=== PATIENT | female | born 1980 | race Caucasian/White ===

== ENCOUNTER 2022-03-04 10:54 | Emergency (ER) | payer BC ==
--- OUTSIDE RECORDS SUMMARY | 2022-03-04 10:58 | XMS REPORT | Continuity of Care Document ---
:1980 Author Organization [facility] t Address [address] [place] [address] Care Team Providers Name Role Phone Prezas DO Primary Care Physician PREZAS Attending Clinician Unavailable AMBREEN_FARHANA Attending Clinician Unavailable [facility] Attending Clinician Unavailable Prekyra DO Attending Clinician G_Pappas Attending Clinician Unavailable AMBREEN_FARHANA Admitting Clinician Unavailable G_Pappas Admitting Clinician Unavailable Payers Payer Name Policy Type Policy Number Effective Date Expiration Date S tracy BCBS 2 [id number] 2021 00:00:00 [place] [id number] 2017 2021 00:00:00 [place] 00:00:00 Problems Condition Condition Condition Status Onset Resolution Last Treating Co mments Source Name Details Category Date Date Treatment Clinician Date Obesity Obesity Disease Active Antoinette (BMI (BMI 3-02 Seybold 35.0-39.9 35.0-39.9 00:00: without without 00 comorbidit comorbidit y) y) Fibroid Fibroid Disease Active Antoinette 3-02 Seybold 00:00: 00 Sprain of Sprain of Disease Active Kavon peoplesy calcaneofi calcaneofi 3-02 Se ybold bular bular 00:00: ligament ligament 00 of left of left ankle ankle Allergies, Adverse Reactions, Alerts This patient has no known allergies or adverse reactions. Social History Social Habit Start Date Stop Date Quantity Comments Source Tobacco use and 2021-10-10 2021-10-10 Smokeless tobacco Ke scott King exposure 00:00:00 00:00:00 non-user Alcohol intake 2021-10-10 2021-10-10 Ex-drinker Antoinette Montes bold 00:00:00 00:00:00 (finding) Education 2021-10-10 2021-10-10 12 Antoinettetram Ayalaold 00:00:00 00:00:00 Sex [birth year] At [birth year] Antoinette reid 00:00:00 00:00:00 Smoking Status Start Date Stop Date Source Never smoked tobacco Antoinette gabriel Medications Ordered Filled Start Stop Current Ordering Indication Dosage Frequency Signature Comments Components Source Medication Medication Date Date Medication? Clinician (SIG) Name Name busPIRone 15mg Take 15 mg K elsey HCl 15 MG 08-22 by mouth 2 Sey bold oral Tablet 00:00: 00:00 times 00 :00 daily Atomoxetine 2020-08 No 1{capsu Take 1 Antoinette HCl 40 MG 09-27 le} capsule by Sey bold oral 00:00: 00:00 mouth Capsule 00 :00 daily Escitalopra Yes Antoinette mccormack Oxalate 10-10 Seybold (Lexapro) 00:00: 20 MG oral 00 Tablet Immunizations Ordered Immunization Filled Immunization Date Status Commen ts Source Name Name Covid-19 Vaccine 2021-07-22 Completed Antoinette cardenas (Allegory Law), Mrna-lnp, 00:00:00 Sony Protein, Pf, 30mcg/0.3ml,IM Covid-19 Vaccine 2020-11-29 Completed Antoinette cardenas (Allegory Law), Mrna-lnp, 00:00:00 Sony Protein, Pf, 30mcg/0.3ml,IM Covid-19 Vaccine 2020-11-09 Completed Antoinette cardenas (Allegory Law), Mrna-lnp, 00:00:00 Sony Protein, Pf, 30mcg/0.3ml,IM Vital Signs Vital Name Observation Time Observation Value Comments Source Systolic blood pressure 2021-10-10 19:10:00 143 mm[Hg] Antoinette King Diastolic blood 2021-10-10 19:10:00 87 mm[Hg] Nacho y Fernando pressure Heart rate 2021-10-10 19:10:00 86 /min Antoinette cardenas Body temperature 2021-10-10 19:10:00 36.61 Davina Carrie King Respiratory rate 2021-10-10 19:10:00 14 /min Carrie King Body height 2021-10-10 19:10:00 165.1 cm Antoinette cardenas Body weight 2021-10-10 19:10:00 97.07 kg Antoinette cardenas BMI 2021-10-10 19:10:00 35.61 kg/m2 Antoinette cardenas Procedures This patient has no known procedures. Encounters Start End Encounter Admission Attending Care Care Encounter Source Date/Time Date/Time Type Type Clinicians Facility Department ID 2022-03-04 2022-03-04 Outpatient ANTOINETTE CHAPA [id number] Antoinette 00:00:00 00:00:00 ABRAHAM Seybol d 2022-03-01 2022-03-01 Outpatient ANTOINETTE CHAPA [id number] Antoinette 00:00:00 00:00:00 ABRAHAM Seybol d 2022-02-19 2022-02-19 Outpatient [facility] [address] [facility] 02:30:00 02:30:00 COROLLA [facility] 2021-12-31 2021-12-31 Outpatient ANTOINETTE CHAPA [id number] Antoinette 08:45:00 08:45:00 ABRAHAM Seybol d 2021-12-31 2021-12-31 Outpatient ANTOINETTE CHAPA [id number] Antoinette 08:15:00 08:15:00 ABRAHAM Seybol d 2021-12-26 2021-12-26 Outpatient ANTOINETTE CHAPA [id number] Antoinette 00:00:00 00:00:00 ABRAHAM Seybol d 2021-11-14 2021-11-14 Outpatient ANTOINETTE CHAPA [id number] Antoinette 13:30:00 13:30:00 ABRAHAM Seybol d 2021-10-15 2021-10-15 Outpatient ANTOINETTE CHAPA [id number] Antoinette 00:00:00 00:00:00 ABRAHAM kelly 2021-10-11 2021-10-11 Outpatient RAJALEXFreya CLULEN [id number] Antoinette 00:00:00 00:00:00 MD Bryce CASTELLANOS 2021-10-10 2021-10-10 Office Pardeep Chapa [id number] Antoinette 13:30:00 14:00:00 Visit Abraham Taylor [id number] Se reid [id number] 2020-11-14 2020-11-14 Outpatient G_Papavel [facility] [id number] [place] 10:37:00 10:37:00 [id number] [facility] Results This patient has no known results.
--- NOTE | 2022-03-04 12:51 | RAD REPORT ---
EXAM DESCRIPTION: RAD - Chest Pa And Lat (2 Views) - 03/04/2022 12:22 pm CLINICAL HISTORY: COUGH COMPARISON: None TECHNIQUE: Frontal and lateral views of the chest were obtained. FINDINGS: The lungs are clear. Heart size is normal and central vasculature is within normal limit s. No pleural effusion or pneumothorax seen. No acute bony finding noted. No aortic abnormality. IMPRESSION: No acute cardiopulmonary process.
[2022-03-04 14:50] LABS: Absolute Lymphocytes (CBC) 2.3 K/uL (0.7-4.9); Hematocrit 36.9 % (36.0-45.0); Lymphocytes % 19.3 % (15.3-44.8); MCV 78.6 fL (80-100); MPV 8.4 fL (7.6-11.3)
[2022-03-04 15:04] LABS: Potassium 3.7 mmol/L (3.5-5.1); Troponin High Sensitivity 3.3 pg/mL (<58.9)
[2022-03-04] MEDS ORDERED: KETOROLAC 30 MG/ML INJ ONE (16:15)
--- NOTE | 2022-03-04 16:20 | EDPHYS ---
Physician Documentation [facility] Name: Edith Corea Age: 41 yrs Sex: Female : 1980 Arrival Date: 03/04/2022 Time: 10:58 Bed 7 Private MD: Andrew Cardoso ED Physician David Moody HPI: 03/04 16:41 This 41 yrs old Female presents to ER via Ambulatory with complaints of Abdominal Pain. kb 16:41 Patient reports cough loss of taste and smell for 1 week. Reports pain to left lower kb ribs started yesterday and has been intermittent.. 16:47 The patient or guardian reports cough, that is intermittent, described as mild. Onset: kb The symptoms/episode began/occurred 1 week(s) ago, and became worse yesterday. Severity of symptoms: At their worst the symptoms were moderate, in the emergency department the symptoms are unchanged. Modifying factors: The symptoms are alleviated by nothing, the symptoms are aggravated by nothing. Associated signs and symptoms: Pertinent positives: chest pain, Pertinent negatives: diarrhea, ear ache, fever, nausea, rhinorrhea, sore throat, vomiting. The patient has not experienced similar symptoms in the past. The patient has not recently seen a physician. 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 - Social history:: Smoking status: Patient denies any tobacco usage or history of. ROS: 16:41 Constitutional: Negative for fever, chills, and weight loss. kb 16:41 ENT: Positive for loss of taste and smell. 16:41 Respiratory: Positive for cough, pleurisy. 16:41 All other systems are negative. Exam: 16:41 Constitutional: This is a well developed, well nourished patient who is awake, alert, kb and in no acute distress. Head/Face: Normocephalic, atraumatic. ENT: Moist Mucous membranes Cardiovascular: Regular rate and rhythm with a normal S1 and S2. No gallops, murmurs, or rubs. No pulse deficits. Respiratory: Respirations even and unlabored. No increased work of breathing. Talking in full sentences Abdomen/GI: Soft, non-tender. No distention Skin: Warm, dry with normal turgor. Normal color. MS/ Extremity: Pulses equal, no cyanosis. Neurovascular intact. Full, normal range of motion. Neuro: Awake and alert, GCS 15, oriented to person, place, time, and situation. Moves all extremities. Normal gait. Psych: Awake, alert, with orientation to person, place and time. Behavior, mood, and affect are within normal limits. 16:41 Chest/axilla: Palpation: tenderness, that is moderate, of the left breast, that totally reproduces the patient's complaints. 16:46 ECG was reviewed by the Attending Physician. kb Vital Signs: 11:06 Pulse 78; Resp 18; Pulse Ox 98% ; Weight 83.91 kg; Height 5 ft. 5 in. (165.10 cm); ap3 11:11 BP 137 / 91; ap3 14:20 BP 123 / 89; Pulse 61; Resp 18; Pulse Ox 97% on R/A; tp1 15:14 Temp 98.2(TE); vg1 15:59 BP 120 / 84; Pulse 78; Resp 18; Pulse Ox 100% on R/A; tp1 11:06 Body Mass Index 30.79 (83.91 kg, 165.10 cm) ap3 MDM: 13:55 Patient medically screened. kb 16:41 Data reviewed: vital signs, nurses notes. Data interpreted: Pulse oximetry: on room air kb is 100 %. Interpretation: normal. Counseling: I had a detailed discussion with the patient and/or guardian regarding: the historical points, exam findings, and any diagnostic results supporting the discharge/admit diagnosis, lab results, radiology results, the need for outpatient follow up, a family practitioner, to return to the emergency department if symptoms worsen or persist or if there are any questions or concerns that arise at home. 03/04 11:12 Order name: COVID-19 SARS RT PCR (Document "Date of Onset" if Symptomatic); Complete ap3 Time: 12:38 03/04 14:06 Order name: CBC with Diff; Complete Time: 14:57 kb 03/04 12:01 Order name: Chest Pa And Lat (2 Views) XRAY; Complete Time: 12:54 kb 03/04 14:06 Order name: Basic Metabolic Panel; Complete Time: 15:05 kb 03/04 14:06 Order name: Troponin HS; Complete Time: 15:05 kb 03/04 14:06 Order name: D-Dimer; Complete Time: 14:57 kb 03/04 14:06 Order name: IV Start; Complete Time: 14:50 kb 03/04 14:06 Order name: EKG; Complete Time: 14:07 kb 03/04 14:06 Order name: EKG - Nurse/Tech; Complete Time: 14:50 kb EC:46 Rate is 64 beats/min. Rhythm is regular. QRS [place] is Normal. [place] interval is normal at kb 154 msec. QRS interval is normal at 84 msec. QT interval is normal at 441 msec. Administered Medications: 16:10 Drug: Ketorolac 15 mg Route: IVP; Site: right antecubital; vg1 16:36 Follow up: Response: No adverse reaction; Marked relief of symptoms vg1 Disposition Summary: 03/04/22 16:20 Discharge Ordered Location: Home kb Condition: Stable kb Diagnosis - Chest pain, unspecified kb Followup: kb - With: Emergency Department - When: As needed - Reason: Worsening of condition Followup: kb - With: Private Physician - When: 2 - 3 days - Reason: Recheck today's complaints, Continuance of care, Re-evaluation by your physician Discharge Instructions: - Discharge Summary Sheet kb - Nonspecific Chest Pain, Adult, [id number] kb Forms: - Medication Reconciliation Form kb - Thank You Letter kb - Antibiotic Education kb - Prescription Opioid Use kb Signatures: Dispatcher [employer] Isabel Calderon, PARISA-Elena Rodriguez, RN RN ap3 Gely Barrett RN RN vg1
--- NOTE | 2022-03-04 16:20 | ER ---
Nurse's Notes [facility] Name: Edith Corea Age: 41 yrs Sex: Female : 1980 Arrival Date: 03/04/2022 Time: 10:58 Bed 7 Private MD: Andrew Cardoso Diagnosis: Chest pain, unspecified Presentation: 03/04 11:06 Chief complaint: Patient states: patient states she is having what feels like stabbing ap3 pain in her left lung/side area that began yesterday. patient states the pain is intermittent and short lasting. patient states she has also had a cough, loss of taste and smell last week. Coronavirus screen: Client presents with at least one sign or symptom that may indicate coronavirus-19. Ebola Screen: No symptoms or risks identified at this time. Risk Assessment: Do you want to hurt yourself or someone else? Patient reports no desire to harm self or others. Onset of symptoms was March 03, 2022. 11:06 Method Of Arrival: Ambulatory ap3 11:06 Acuity: KEITH 3 ap3 11:11 Initial Sepsis Screen: Does the patient meet any 2 criteria? No. Patient's initial ap3 sepsis screen is negative. Does the patient have a suspected source of infection? No. Patient's initial sepsis screen is negative. Triage Assessment: 11:10 General: Appears in no apparent distress. Behavior is calm, cooperative, appropriate ap3 for age. Pain: Complains of pain in left upper quadrant/left side/left lung Pain does not radiate. Quality of pain is described as stabbing, Is intermittent. Neuro: Level of Consciousness is awake, alert, obeys commands, Oriented to person, place, time, situation, Gait is steady, Speech is normal. Cardiovascular: Patient's skin is warm and dry. Respiratory: Reports cough that is Airway is patent. GI: Reports diarrhea. 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 - Social history:: Smoking status: Patient denies any tobacco usage or history of. Screenin:10 Abuse screen: Denies threats or abuse. Nutritional screening: No deficits noted. ap3 Tuberculosis screening: No symptoms or risk factors identified. Fall Risk None identified. Assessment: 14:20 General: Appears in no apparent distress. comfortable, Behavior is calm, cooperative. tp1 Pain: Complains of pain in under left rib Pain does not radiate. Pain currently is 0 out of 10 on a pain scale. at worst was 8 out of 10 on a pain scale. Quality of pain is described as stabbing, Pain began 3 am Is intermittent. Neuro: Level of Consciousness is awake, alert, obeys commands, Oriented to person, place, time, situation. Cardiovascular: Denies chest pain, lightheadedness, Patient's skin is warm and dry. Respiratory: Reports states more SOB than normal while riding bike 2 days ago Airway is patent Respiratory effort is even, unlabored, Denies shortness of breath pain with respiration, pain with cough, pain with movement. GI: Abdomen is round non-distended, Bowel sounds present X 4 quads. Abd is soft and non tender X 4 quads. Reports diarrhea for the past 2-3 weeks Patient currently denies nausea, vomiting. : No signs and/or symptoms were reported regarding the genitourinary system. EENT: No signs and/or symptoms were reported regarding the EENT system. Derm: Skin is pink, warm \T\ dry. Musculoskeletal: Circulation, motion, and sensation intact. 15:40 Reassessment: Patient appears in no apparent distress at this time. No changes from tp1 previously documented assessment. Patient and/or family updated on plan of care and expected duration. Pain level reassessed. Patient is alert, oriented x 3, equal unlabored respirations, skin warm/dry/pink. Patient denies pain at this time. Vital Signs: 11:06 Pulse 78; Resp 18; Pulse Ox 98% ; Weight 83.91 kg; Height 5 ft. 5 in. (165.10 cm); ap3 11:11 BP 137 / 91; ap3 14:20 BP 123 / 89; Pulse 61; Resp 18; Pulse Ox 97% on R/A; tp1 15:14 Temp 98.2(TE); vg1 15:59 BP 120 / 84; Pulse 78; Resp 18; Pulse Ox 100% on R/A; tp1 11:06 Body Mass Index 30.79 (83.91 kg, 165.10 cm) ap3 ED Course: 10:58 Patient arrived in ED. mr 10:58 Andrew Cardoso DO is Private Physician. mr 11:09 Triage completed. ap3 11:12 Arm band placed on right wrist. ap3 12:01 Isabel Taylor [facility]C [facility] kb 12:01 David Moody MD is Attending Physician. kb 12:24 Chest Pa And Lat (2 Views) XRAY In Process Unspecified. EDMS 14:09 Gely Barrett, RN is Primary Nurse. vg1 14:20 Allergy band placed. Bed in low position. Call light in reach. tp1 14:21 Inserted saline lock: 20 gauge in right antecubital area, using aseptic technique. vg1 Blood collected. 14:21 Initial lab(s) drawn, by ms, COVID swab sent to lab. vg1 14:37 EKG done, by ED staff. tp1 16:35 No provider procedures requiring assistance completed. IV discontinued, intact, vg1 bleeding controlled, No redness/swelling at site. Pressure dressing applied. Administered Medications: 16:10 Drug: Ketorolac 15 mg Route: IVP; Site: right antecubital; vg1 16:36 Follow up: Response: No adverse reaction; Marked relief of symptoms vg1 Medication: 16:35 VIS not applicable for this client. vg1 Outcome: 16:20 Discharge ordered by . kb 16:35 Discharged to home ambulatory. vg1 16:35 Condition: good 16:35 Discharge instructions given to patient, Instructed on discharge instructions, follow up and referral plans. medication usage, Demonstrated understanding of instructions, follow-up care. 16:36 Patient left the ED. vg1 Signatures: Dispatcher [employer] EDUT Isabel Taylor FNP-C FNP-Ckb Phyllis Garza Elena Mckeon RN RN ap3 Gely Barrett RN RN vg1 Elida Couch RN RN tp1 Corrections: (The following items were deleted from the chart) 11:12 11:06 Chief complaint: Patient states: patient states she is having what feels like ap3 stabbing pain in her left lung/side area that began yesterday. patient states the pain is intermittent and short lasting. ap3
[2022-03-04 17:45] VITALS: TEMP 98.2
[2022-03-04 17:47] VITALS: BP 120/84; O2SAT 100
--- NOTE | 2022-03-05 12:39 | EKG ---
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
== END 2022-03-04 16:36 | disposition home or self-care (01) ==
LOC: ER 10:54
DX: R07.9 Chest pain, unspecified (principal); R05.9 Cough, unspecified; Z20.822 Contact with and (suspected) exposure to COVID-19
CPT/HCPCS: 93005; 85025; 80048; 36415; 85379; 84484; 71046; 96374; 99284; U0003

== ENCOUNTER 2023-05-20 09:28 | Emergency (ER) | payer BC ==
--- OUTSIDE RECORDS SUMMARY | 2023-05-20 09:31 | XMS REPORT | Continuity of Care Document ---
:1980 Author Organization [facility] t Address [address] [facility] [address] [place] [id number] Care Team Providers Name Role Phone Abraham Cardoso DO Primary Care Physician ABRAHAM CARDOSO Attending Clinician Unavailable TESTING, LJ ALYSON TORRES Attending Clinician Unavailable [id number] Attending Clinician Unavailable ALEXANDRIA Attending Clinician Unavailable MD EVELINE Attending Clinician Unavailable Abraham Cardsoo DO Attending Clinician Claire_David Attending Clinician Unavailable Chris Posadas Attending Clinician ALEXANDRIA Admitting Clinician Unavailable Brianna Admitting Clinician Unavailable Payers Payer Name Policy Type Policy Number Effective Date Expiration Date S tracy BCBS 2 [id number] 2021 00:00:00 [place] [id number] 2017 2021 00:00:00 [place] 00:00:00 Problems Condition Condition Condition Status Onset Resolution Last Treating Co mments Source Name Details Category Date Date Treatment Clinician Date Obesity Obesity Disease Active Antoinette (BMI (BMI 3-02 Seybold 35.0-39.9 35.0-39.9 00:00: without without 00 comorbidit comorbidit y) y) Fibroid Fibroid Disease Active Antoinette 3-02 Seybold 00:00: 00 Sprain of Sprain of Disease Active Kavon ugalde calcaneofi calcaneofi 3-02 Se reid bular bular 00:00: ligament ligament 00 of left of left ankle ankle Simple Simple Problem Active 2019-01-11 Eric aye obesity obesity 18:03:37 l (disorder) (disorder) He rmann Active Problem 01/11/2019 [facility] Elevated Elevated Problem Active 2019-01-11 Memoria blood-pres blood-pres 18:03:37 l sure sure Rosalio reading reading without without diagnosis diagnosis of of hypertensi hypertensi on on (finding) (finding) Active Problem 01/11/2019 Medical Group Goiter Goiter Problem Active 2019-01-11 Eric aye (disorder) (disorder) 18:03:37 l Active Reading Problem 01/11/2019 Medical Group Allergies, Adverse Reactions, Alerts Allergy Allergy Status Severity Reaction(s) Onset Inactive Treating Comm ents Source Name Type Date Date Clinician No Known No Known Active Memori a Medicati Medicati l on on Reading Allergie Allergie s s Social History Social Habit Start Date Stop Date Quantity Comments Source Tobacco use and 2021-10-10 2021-10-10 Smokeless tobacco Wes chavez jeanette exposure 00:00:00 00:00:00 non-user Alcohol intake 2021-10-10 2021-10-10 Ex-drinker Antoinette holden 00:00:00 00:00:00 (finding) Education 2021-10-10 2021-10-10 12 Antoinette King 00:00:00 00:00:00 Social History 2018-06-03 2018-06-03 [facility] 21:37:36 21:37:36 Sex [birth year] At [birth year] Antoinette reid 00:00:00 00:00:00 Smoking Status Start Date Stop Date Source Never smoked tobacco Antoinette Personrichi gabriel Medications Ordered Filled Start Stop Current Ordering Indication Dosage Frequency Signature Comments Components Source Medication Medication Date Date Medication? Clinician (SIG) Name Name busPIRone 2021- No 15mg Take 15 mg K elsey HCl 15 MG 08-22 by mouth 2 Sey bold oral Tablet 00:00: 00:00 times 00 :00 daily Atomoxetine 2020-08- No 1{capsu Take 1 Antoinette HCl 40 MG 09-27 le} capsule by Simon bold oral 00:00: 00:00 mouth Capsule 00 :00 daily Blood 2017-08 Yes 1 ea, Memoria Pressure 0-24 MISC, l Monitor 21:48: ONCE, Will Herm zen Upper Arm 00 need a Misc/Other letter of medical necessity for Medicare/i nsurance reimbursem ent, # 1 ea, 0 Refill(s) Acetaminoph 2017-08 Yes 1 cap, PO, Memoria en 300 MG / 0-24 Q4H, PRN l butalbital 20:40: PRN Rosalio 50 MG / 00 Headache, Caffeine 40 Do not MG Oral exceed 6 Capsule capsules [Fioricet] in 24 hours, # 60 cap, 0 Refill(s) Escitalopra Yes Antoinette Dexter 10-10 Seybold (Lexapro) 00:00: 20 MG oral 00 Tablet Vital Signs Vital Name Observation Time Observation Value Comments Source Systolic blood 2021-10-10 19:10:00 143 mm[Hg] Antoinette Seybold pressure Diastolic blood 2021-10-10 19:10:00 87 mm[Hg] Kelse y Seybold pressure Heart rate 2021-10-10 19:10:00 86 /min Antoinette S eybold Body temperature 2021-10-10 19:10:00 36.61 Davina Carrie ey Seybold Respiratory rate 2021-10-10 19:10:00 14 /min Carrie ey Seybold Body height 2021-10-10 19:10:00 165.1 cm Antoinette S eybold Body weight 2021-10-10 19:10:00 97.07 kg Antoinette S eybold BMI 2021-10-10 19:10:00 35.61 kg/m2 Antoinette S daphnebold BMI Calculated 2018-06-03 20:38:00 Memori al Rosalio Weight 2018-06-03 20:38:00 Memorial Rosalio Height 2018-06-03 20:38:00 162.56 cm Memorial Rosalio Respitory Rate 2018-06-03 20:38:00 Memori al Rosalio Temperature Oral (F) 2018-06-03 20:38:00 98.7 F [facility] Rosalio Heart Rate 2018-06-03 20:38:00 [facility] Reading Systolic (mm Hg) 2018-06-03 20:38:00 Eric rial Rosalio Diastolic (mm Hg) 2018-06-03 20:38:00 Mem orial Reading Procedures Procedure Date / Time Performed Performing Clinician Sourjesenia Gold's gland 2015-01-01 05:00:00 [facility] ermann operation Caesarean section 2003-08-22 06:00:00 [facility] Encounters Start End Encounter Admission Attending Care Care Encounter Source Date/Time Date/Time Type Type Clinicians Facility Department ID 2022-09-26 2022-09-26 Outpatient ANTOINETTE CARDOSO [id number] Antoinette 00:00:00 00:00:00 ABRAHAM Seybol d 2022-04-12 2022-04-12 Outpatient ANTOINETTE CARDOSO [id number] Antoinette 14:45:00 14:45:00 ABRAHAM Seybol d 2022-04-12 2022-04-12 Outpatient TESTING, LJ ANTOINETTE CULLEN [id number] Antoinette 14:00:00 14:00:00 Seybol d 2022-04-12 2022-04-12 Outpatient LEG92-IES ANTOINETTE CULLEN [id number] Antoinette 14:00:00 14:00:00 Seybol d 2022-04-12 2022-04-12 Outpatient ANTOINETTE CARDOSO [id number] Antoinette 00:00:00 00:00:00 ABRAHAM Seybol d 2022-04-12 2022-04-12 Outpatient ANTOINETTE CARDOSO [id number] Antoinette 00:00:00 00:00:00 ABRAHAM Seybol d 2022-03-04 2022-03-04 Outpatient ANTOINETTE CARDOSO [id number] Antoinette 00:00:00 00:00:00 ABRAHAM Seybol d 2022-03-01 2022-03-01 Outpatient ANTOINETTE CARDOSO [id number] Antoinette 00:00:00 00:00:00 ABRAHAM Seybol d 2022-02-19 2022-02-19 Outpatient JAKE_ELEUTERIO MCDONALD [id number] [place] 02:30:00 02:30:00 RUBEN 0712 da [facility] 2021-12-31 2021-12-31 Outpatient PREZAANTOINETTE Giron ANTOINETTE [id number] Antoinette 08:45:00 08:45:00 ABRAHAM Seybol d 2021-12-31 2021-12-31 Outpatient PREANTOINETTE ELKINS ANTOINETTE [id number] Antoinette 08:15:00 08:15:00 ABRAHAM Seybol d 2021-12-26 2021-12-26 Outpatient PREZAMack ANTOINETTE CULLEN [id number] Antoinette 00:00:00 00:00:00 ABRAHAM Seybol d 2021-11-14 2021-11-14 Outpatient PREBRITTNI ANTOINETTE CULLEN [id number] Antoinette 13:30:00 13:30:00 ABRAHAM Seybol d 2021-10-15 2021-10-15 Outpatient PREZAMack ANTOINETTE CULLEN [id number] Antoinette 00:00:00 00:00:00 ABRAHAM Seybol d 2021-10-11 2021-10-11 Outpatient RAJON ANTOINETTE CULLEN [id number] Antoinette 00:00:00 00:00:00 MD JASMIN Seybol d 2021-10-10 2021-10-10 Office Pardeep Cardoso [id number] Antoinette 13:30:00 14:00:00 Visit Abraham Brandon [id number] Se reid [id number] 2020-11-14 2020-11-14 Outpatient G_Pappas MMG MM [id number] [place] 10:37:00 10:37:00 [id number] [facility] 2018-06-24 2018-06-24 Ambulatory nullFlavo [facility] 3 [id number] Memoria 22:15:00 22:15:00 Pre-Reg r Medicine 01 ryan Santamaria 2018-06-24 2018-06-24 Outpatient MARIEIE MARIEIE [id number] Memoria 16:15:00 16:15:00 Geoffrey Santamaria 2018-06-24 2018-06-24 Outpatient Cuauhtemoc [facility] [id number] 16:15:00 16:15:00 Chris Hale 2018-06-03 2018-06-04 Outpatient nullFlavo [facility] 3 [id number] Memoria 20:45:00 04:59:59 r Medicine 00 l Courtney Santamaria 2018-06-03 2018-06-03 Outpatient Cuauhtemoc [facility] [id number] 15:45:00 23:59:59 Chris Astudillo 2018-06-03 2018-06-03 Outpatient [facility] [id number] Memoria 15:45:00 15:45:00 00 ryan Santamaria Results This patient has no known results.
[2023-05-20] MEDS ORDERED: ACETAMINOPHEN 500 MG TAB ONE (10:03)
--- NOTE | 2023-05-20 11:22 | RAD REPORT ---
EXAM DESCRIPTION: USExtremity Venous Uni Ltd05/20/2023 10:33 am CLINICAL HISTORY: Right leg swelling COMPARISON: None. FINDINGS: Right common femoral, superficial femoral, greater saphenous, popliteal and right posterio r tibial veins are compressible and demonstrate augmentation. Doppler demonstrates good flow. Grayscale, color and spectral analysis performed on all vessels IMPRESSION: No evidence of deep venous thrombosis involving the right lower extremity.
--- NOTE | 2023-05-20 11:27 | ER ---
Nurse's Notes [facility] Name: Edith Corea Age: 42 yrs Sex: Female : 1980 Arrival Date: 05/20/2023 Time: 09:28 Bed 5 Private MD: Diagnosis: Contusion of right lower leg Presentation: 05/20 09:44 Chief complaint: Patient states: Swelling and pain behind right knee since yesterday, nj1 getting worse. Coronavirus screen: Vaccine status: Patient reports receiving the 2nd dose of the covid vaccine. Ebola Screen: Patient denies travel to an Ebola-affected area in the 21 days before illness onset. Initial Sepsis Screen: Does the patient meet any 2 criteria? No. Patient's initial sepsis screen is negative. Does the patient have a suspected source of infection? No. Patient's initial sepsis screen is negative. Risk Assessment: Do you want to hurt yourself or someone else? Patient reports no desire to harm self or others. Onset of symptoms was May 19, 2023. 09:44 Method Of Arrival: Ambulatory [facility] 09:44 Acuity: KEITH 3 nj1 Historical: - Allergies: 09:47 Codeine; nj1 - PMHx: 09:47 Depressive disorder; Anxiety; nj1 - PSHx: 09:47 section; nj1 - Immunization history:: Client reports receiving the 2nd dose of the Covid vaccine. - Social history:: Smoking status: Patient denies any tobacco usage or history of. Screenin:44 [facility] ED Fall Risk Assessment (Adult) History of falling in the last 3 months, rs5 including since admission No falls in past 3 months (0 pts) Confusion or Disorientation No (0 pts) Intoxicated or Sedated No (0 pts) Impaired Gait No (0 pts) Mobility Assist Device Used No (0 pt) Altered Elimination No (0 pt) Score/Fall Risk Level 0 - 2 = Low Risk Oriented to surroundings, Maintained a safe environment. Abuse screen: Denies threats or abuse. 09:44 Nutritional screening: No deficits noted. Tuberculosis screening: No symptoms or risk rs5 factors identified. Assessment: 10:05 General: Appears in no apparent distress. comfortable, Behavior is calm, cooperative. rs5 Pain: Complains of pain in back of left knee Pain does not radiate. Pain currently is 5 out of 10 on a pain scale. Quality of pain is described as aching, Pain began 2-3 days ago. Is continuous, Aggravated by increased activity. Neuro: Level of Consciousness is awake, alert, obeys commands, Oriented to person, place, time, situation. Cardiovascular: Heart tones S1 S2 present Rhythm is regular. Respiratory: Airway is patent Respiratory effort is even, unlabored, Respiratory pattern is regular, symmetrical, Breath sounds are clear bilaterally. GI: Abdomen is round non-distended, Bowel sounds present X 4 quads. Abd is soft and non tender X 4 quads. : No signs and/or symptoms were reported regarding the genitourinary system. EENT: No signs and/or symptoms were reported regarding the EENT system. Derm: Skin is pink, warm \T\ dry. bruise noted to back of left knee, pt denies recent falls or injury that might've caused bruise. 10:30 Reassessment: Patient states feeling better. Patient states symptoms have improved. rs5 Pain: Complains of pain in posterior aspect of right knee Pain currently is 3 out of 10 on a pain scale. Quality of pain is described as aching, Is continuous. 11:00 Reassessment: Patient and/or family updated on plan of care and expected duration. Pain rs5 level reassessed. Patient is alert, oriented x 3, equal unlabored respirations, skin warm/dry/pink. Vital Signs: 09:44 BP 133 / 108; Pulse 83; Resp 16; Temp 98.4(TE); Pulse Ox 100% ; Weight 88.45 kg; Height nj1 5 ft. 5 in. ; Pain 4/10; 10:35 BP 121 / 88; Pulse 89; Resp 16; Pulse Ox 100% on R/A; rs5 11:10 BP 125 / 90; Pulse 87; Resp 17; Pulse Ox 99% on R/A; rs5 09:44 Body Mass Index 32.45 (88.45 kg, 165.1 cm) [facility] 09:44 Pain Scale: Adult [facility] ED Course: 09:34 Patient arrived in ED. im 09:34 [facility] jh7 09:34 Teja Nuñez MD is Attending Physician. [facility] 09:44 Patient has correct armband on for positive identification. Placed in gown. Bed in low rs5 position. Side rails up X2. 09:46 Triage completed. nj1 09:47 Arm band placed on right wrist. nj1 09:48 Alejo Munguia, RN is Primary Nurse. rs5 10:35 US Extremity Venous Unilateral Ltd In Process Unspecified. EDMS 11:30 No provider procedures requiring assistance completed. rs5 11:30 Patient did not have IV access during this emergency room visit. rs5 Administered Medications: 09:50 Drug: Acetaminophen PO 1000 mg PO once Route: PO; rs5 10:30 Follow up: Response: No adverse reaction rs5 Medication: 11:30 VIS not applicable for this client. rs5 Outcome: 11:26 Discharge ordered by MD. 7 11:30 Discharged to home via wheelchair, rs5 11:30 Condition: stable 11:30 Discharge instructions given to patient, Instructed on discharge instructions, follow up and referral plans. medication usage, Demonstrated understanding of instructions, follow-up care, medications, Prescriptions given X 1, 11:36 Patient left the ED. kj1 Signatures: Dispatcher [employer] EDTX Elena Mckeon RN RN ap3 Va Taylor kj1 Karen Farrell, SPA EXPERIENCE COORDINATOR SPA EXPERIENCE COORDINATOR [facility] Alejo Munguia, RN RN rs5 Sanna Ni RN RN nj1 Odette Rankin Corrections: (The following items were deleted from the chart) 16:59 10:39 BP 121 / 88; Pulse 89bpm; Pulse Ox 100% RA; ap3 rs5
--- NOTE | 2023-05-20 11:27 | EDPHYS ---
Physician Documentation [facility] Name: Edith Corea Age: 42 yrs Sex: Female : 1980 Arrival Date: 05/20/2023 Time: :28 Bed 5 Private MD: ED Physician Teja Nuñez HPI: 05/20 09:35 This 42 yrs old Female presents to ER via Ambulatory with complaints of Leg Swelling - jh7 right. 09:35 The patient presents with a contusion, pain, that is acute, swelling. The complaints jh7 affect the posterior aspect of right knee. Context: resulted from an unknown cause, the patient is not able to bear weight, Problem is a result from a previous injury: No. Onset: The symptoms/episode began/occurred yesterday. Associated signs and symptoms: Pertinent positives: swelling, Pertinent negatives calf tenderness, fever, nausea, numbness, tingling, vomiting, warmth, weakness. Treatment prior to arrival includes: no previous treatment. Denies injury, recent travel, history of blood clots, or fever.. Historical: - Allergies: 09:47 Codeine; nj1 - PMHx: 09:47 Depressive disorder; Anxiety; nj1 - PSHx: 09:47 section; nj1 - Immunization history:: Client reports receiving the 2nd dose of the Covid vaccine. - Social history:: Smoking status: Patient denies any tobacco usage or history of. ROS: 09:35 Constitutional: Negative for fever, chills, and weight loss, Cardiovascular: Negative jh7 for chest pain, palpitations, and edema, Respiratory: Negative for shortness of breath, cough, wheezing, and pleuritic chest pain, Abdomen/GI: Negative for abdominal pain, nausea, vomiting, diarrhea, and constipation, Back: Negative for injury and pain, Skin: Negative for injury, rash, and discoloration, Neuro: Negative for headache, weakness, numbness, tingling, and seizure, 09:35 MS/extremity: Positive for contusion, pain, swelling, tenderness, of the posterior aspect of right knee, Negative for injury or acute deformity, 09:35 All other systems are negative, Exam: 09:35 Constitutional: This is a well developed, well nourished patient who is awake, alert, jh7 and in no acute distress. Head/Face: Normocephalic, atraumatic. Neck: Trachea midline, no thyromegaly or masses palpated, and no cervical lymphadenopathy. Supple, full range of motion without nuchal rigidity, or vertebral point tenderness. No Meningismus. Cardiovascular: Regular rate and rhythm with a normal S1 and S2. No gallops, murmurs, or rubs. Normal PMI, no JVD. No pulse deficits. Respiratory: Lungs have equal breath sounds bilaterally, clear to auscultation and percussion. No rales, rhonchi or wheezes noted. No increased work of breathing, no retractions or nasal flaring. Back: No spinal tenderness. No costovertebral tenderness. Full range of motion. Skin: Warm, dry with normal turgor. Normal color with no rashes, no lesions, and no evidence of cellulitis. Neuro: Awake and alert, GCS 15, oriented to person, place, time, and situation. Motor strength 5/5 in all extremities. Sensory grossly intact. Normal gait. 09:35 Musculoskeletal/extremity: Extremities: noted in the posterior aspect of right knee: contusion, pain, swelling, ROM: intact in all extremities, Circulation is intact in all extremities. Perfusion: the extremity is normally perfused throughout, pink, warm, with brisk capillary refill, Sensation intact. Vital Signs: 09:44 BP 133 / 108; Pulse 83; Resp 16; Temp 98.4(TE); Pulse Ox 100% ; Weight 88.45 kg; Height nj1 5 ft. 5 in. ; Pain 4/10; 10:35 BP 121 / 88; Pulse 89; Resp 16; Pulse Ox 100% on R/A; rs5 11:10 BP 125 / 90; Pulse 87; Resp 17; Pulse Ox 99% on R/A; rs5 09:44 Body Mass Index 32.45 (88.45 kg, 165.1 cm) nj1 09:44 Pain Scale: Adult nj1 MDM: 09:34 Patient medically screened. [facility] 11:26 Differential diagnosis: contusion, DVT, SVT. Data reviewed: vital signs, nurses notes, [facility] radiologic studies, ultrasound. I considered the following discharge prescriptions or medication management in the emergency department Medications were administered in the Emergency Department. See MAR. Counseling: I had a detailed discussion with the patient and/or guardian regarding the historical points, exam findings, and any diagnostic results supporting the discharge/admit diagnosis, to return to the emergency department if symptoms worsen or persist or if there are any questions or concerns that arise at home. Response to treatment: the patient's symptoms have mildly improved after treatment. 05/20 09:38 Order name: US Extremity Venous Unilateral Ltd; Complete Time: 11:24 [facility] Administered Medications: 09:50 Drug: Acetaminophen PO 1000 mg PO once Route: PO; rs5 10:30 Follow up: Response: No adverse reaction rs5 Disposition: 12:12 Co-signature as Attending Physician, Teja Nuñez MD I reviewed the patient's care rn provided by the Advanced Practice Provider and agree with the diagnosis and treatment plan. Disposition Summary: 05/20/23 11:26 Discharge Ordered Notes: Location: Home [facility] Problem: new [facility] Symptoms: are unchanged [facility] Condition: Stable [facility] Diagnosis - Contusion of right lower leg [facility] Followup: 7 - With: Private Physician - When: 2 - 3 days - Reason: Recheck today's complaints Discharge Instructions: - Discharge Summary Sheet [facility] - Contusion [facility] Forms: - Work release form kj1 - Medication Reconciliation Form 7 - Thank You Letter 7 - Patient Portal Instructions 7 - Leadership Thank You Letter 7 Prescriptions: - Naprosyn 500 mg Oral Tablet - take 1 tablet ORAL route 2 times per day take with food; 30 tablet; Refills: 0, jh7 Product Selection Permitted Signatures: Dispatcher [employer] Teja Galarza MD MD rn Hadash, Jennifer, TICKET TAKER FERRYBOAT TICKET TAKER FERRYBOAT 7 Alejo Munguia RN RN rs5 Sanna Ni RN RN nj1
[2023-05-20 11:39] VITALS: TEMP 98.4; O2SAT 100
[2023-05-20 11:41] VITALS: BP 121/88
== END 2023-05-20 11:36 | disposition home or self-care (01) ==
LOC: ER 09:28
DX: S80.11XA Contusion of right lower leg, initial encounter (principal); Z88.5 Allergy status to narcotic agent
CPT/HCPCS: 93971